=== PATIENT | male | born 2000 | race Caucasian/White ===

== ENCOUNTER 2023-01-14 21:32 | Emergency (ER) | payer SELFPAY ==
[~2023-01-14] VITALS: Ht 180.3 cm; Wt 63.5 kg
[2023-01-14 21:35] VITALS: BP 125/70
--- NOTE | 2023-01-14 21:38 | NUR ---
TO LOBBY A/W BED AMBULATORY
[2023-01-14] MEDS ORDERED: ACETAMINOPHEN EXTRA STRENGTH 500 MG TAB PO ONE (22:30)
[2023-01-14] MEDS ORDERED: IBUPROFEN 600 MG TAB PO ONE (22:30)
[2023-01-14] MEDS ORDERED: ONDANSETRON 4 MG ODT PO ONE (22:30)
--- NOTE | 2023-01-14 22:31 | NUR ---
PT TO BED #7
--- NOTE | 2023-01-14 22:39 | NUR ---
PT TO CT
--- NOTE | 2023-01-14 22:50 | NUR ---
PT BACK FROM CT
--- NOTE | 2023-01-14 23:23 | NUR ---
22YR OLD MALE BIB SELF C/O FALL HEAD /SHOULDER PAIN. PT STATES HE FALL HIT BACK OF HEAD STATES +LOC. NO WITNESS FALL. +NAUSEA DENIES VOMITING. 07/27 SHARP HEADACHE . PT IS A&OX4. NKDA NO MED HX
--- NOTE | 2023-01-14 23:46 | NUR ---
PT WENT TO PERSONAL VEHICLE AROUND 2330 AND HAS NOT RETURNED BACK. DR. GARLAND NOTIFIED.
--- NOTE | 2023-01-14 23:48 | NUR ---
PT RETURNED AT THIS TIME
--- NOTE | 2023-01-14 23:53 | NUR ---
DR GARLAND AT BEDSIDE
[2023-01-15] MEDS ORDERED: IBUP-2213 PO (00:01)
[2023-01-15] MEDS ORDERED: ONDA-188 PO (00:01)
[2023-01-15] MEDS ORDERED: ACET-10509 PO (00:01)
--- NOTE | 2023-01-15 00:08 | NUR ---
Patient discharged with v/s stable. Written and verbal after care instructions given and explained. Patient verbalized understanding. Ambulatory with steady gait. All questions addressed prior to discharge. Advised to follow up with PMD.
[2023-01-15 00:09] VITALS: BP 114/59
--- NOTE | 2023-01-15 00:16 | NUR ---
The patient's care was reviewed and supervised by Aleja Ricketts RN.
== END 2023-01-15 00:08 | disposition home or self-care (01) ==
LOC: MED 21:32
DX: S06.0X0A Concussion without loss of consciousness, initial encounter (principal); W18.30XA Fall on same level, unspecified, initial encounter; Y93.89 Activity, other specified; Y92.89 Other specified places as the place of occurrence of the external cause; Y99.8 Other external cause status
CPT/HCPCS: 70450; 72125; 99284; Q0162